=== PATIENT | female | born 2000 | race Caucasian/White ===

== ENCOUNTER 2023-12-25 20:21 | Emergency (ER) | payer MEDICAID ==
[~2023-12-25] VITALS: Ht 165.1 cm; Wt 75.6 kg
[2023-12-25 21:13] VITALS: BP 133/91; PULSE 82; RESP 15; TEMP 98.6; O2SAT 100
[2023-12-26 00:27] LABS: CLARITY URINE TURBID (CLEAR); COLOR URINE RED (YELLOW); GLUCOSE URINE NEGATIVE (NEGATIVE); KETONES URINE NEGATIVE (NEGATIVE); LEUKOCYTE ESTERASE URINE 1+ (NEGATIVE); NITRITE URINE NEGATIVE (NEGATIVE); OCCULT BLOOD URINE 3+ (NEGATIVE); PH URINE 5.5 (4.5-8.0); PROTEIN URINE 2+ (NEGATIVE); SPECIFIC GRAVITY URINE 1.015 (1.005-1.030); UROBILINOGEN URINE 0.2 E.U./dL (0.2-1.0)
[2023-12-26 04:41] LABS: SQUAMOUS EPITHELIAL CELL URINE FEW /lpf (RARE/1+)
[2023-12-26 04:43] LABS: BACTERIA URINE NONE SEEN; RBC URINE TNTC /hpf (0-2)
== END 2023-12-26 00:28 | disposition left against medical advice (07) ==
LOC: ER 20:21
DX: R10.9 Unspecified abdominal pain (principal); Z53.21 Procedure and treatment not carried out due to patient leaving prior to being seen by health care provider
CPT/HCPCS: 81003; 81025